=== PATIENT | female | born 1990 | race Caucasian/White ===

== ENCOUNTER → 2022-02-10 15:16 | Observation (INO) ==
[2022-02-10 14:04] LABS: Bacteria,Urine Moderate per hpf (None-Few); Bilirubin,Urine Negative (Negative); Blood,Urine Negative (Negative); Clarity,Urine Turbid (Clear); Color,Urine Light-Yellow (Yellow); Glucose,Urine (UA) Normal (Normal); Ketones,Urine Trace mg/dL (Negative); Leukocyte Esterase,Urine Large (Negative); Mucus,Urine Few per lpf (None-Few); Nitrite,Urine Negative (Negative); PH,Urine 6.5 pH Units (5.0-8.0); Protein,Urine Trace mg/dL (Neg-Trace); Specific Gravity,Urine 1.008 (1.010-1.025); Squamous Epithelial Cell,Urine Moderate per hpf (None-Few); Urobilinogen,Urine Normal (Normal); WBC,Urine 15-30 per hpf (0-3)
[~2022-02-10 15:16] MED LIST: Nitrofurantoin (BID) 100 MG CAPSULE PO ONE; Ringers Solution, Lactated 1,000 ML IVC ONE; Ringers Solution, Lactated 1,000 ML ONE
== END | disposition home or self-care (01) ==
LOC: 1NENULAB
PROVIDERS: ADMIT Student in an Organized Health Care Education/Training Program; ATTEND Student in an Organized Health Care Education/Training Program

== ENCOUNTER 2022-03-25 10:03 | Inpatient (IN) ==
[~2022-03-25 10:03] MED LIST changes: +*HR* Nalbuphine 10 MG/ML AMPUL IV PRN; +Famotidine 20 MG/2 ML VIAL IVP PRN; +Lidocaine 1% 20 ML MDV INFILT PRN; +Metoclopramide 10 MG/2 ML VIAL IVP PRN; +Naloxone 0.4 MG/ML INJ IVP PRN; -Nitrofurantoin (BID) 100 MG CAPSULE PO ONE; -Ringers Solution, Lactated 1,000 ML IVC ONE; -Ringers Solution, Lactated 1,000 ML ONE
[2022-03-25] MEDS ORDERED: Ringers Solution, Lactated 1,000 ML IVC SCH (10:15)
[2022-03-25 11:14] LABS: Amphetamine Screen,Urine Negative ng/mL (Cutoff=1000); Barbiturate Screen,Urine Negative ng/mL (Cutoff=200); Benzodiazepines Screen,Urine Negative ng/mL (Cutoff=200); Cannabinoid Screen,Urine Negative ng/mL (Cutoff = 50); Cocaine Screen,Urine Negative ng/mL (Cutoff= 300); Opiate Screen,Urine Negative ng/mL (Cutoff=300); Phencyclidine Screen,Urine Negative ng/mL (Cutoff=25)
[2022-03-25] MEDS ORDERED: miSOPROStoL 25 MCG TABLET PO PRN (11:43)
[2022-03-25] MEDS ORDERED: Oxytocin 30 UNIT/503 ML BAG IVC SCH (11:45)
[2022-03-25 11:57] LABS: Basophils % 0.1 %; Eosinophils % 0.3 %; Hematocrit 33.6 % (35.3-44.9); Hemoglobin 10.9 g/dL (11.5-15.4); Immature Granulocytes % 0.3 % (0-4); Lymphocytes # 1.4 K/mcL (0.6-4.6); Lymphocytes % 15.8 %; Mean Corpuscular HGB Conc 32.4 g/dL (31.6-35.5); Mean Corpuscular Hemoglobin 28.6 pg (28.0-33.3); Mean Corpuscular Volume 88.2 fL (83.0-100.0); Mean Platelet Volume 12.5 fL (9.4-12.4); Monocytes # 0.8 K/mcL (0.0-1.3); Monocytes % 8.4 %; Neutrophils # 6.7 K/mcL (1.6-8.9); Platelet Count 212 K/mcL (140-400); Red Blood Count 3.81 M/mcL (3.82-4.97); Red Cell Distribution Width 14.4 % (11.5-14.5); Segmented Neutrophils % 75.1 %; White Blood Count 8.9 K/mcL (4.3-11.1)
[2022-03-25] MEDS ORDERED: Fluconazole 150 MG TABLET PO SCH (12:15)
[2022-03-25 12:32] LABS: Influenza A PCR Negative (Negative); Influenza B PCR Negative (Negative); Resp. Syncytial Virus PCR Negative (Negative)
[2022-03-25 13:19] LABS: SARS-CoV-2 by PCR (In House) Negative (Negative)
[2022-03-25] MEDS ORDERED: EPHEDrine 50 MG/ML VIAL IVP PRN (13:50)
[2022-03-25] MEDS ORDERED: Ropivacaine/PF 0.2% 20 ML VIAL ONE (13:57)
[2022-03-25] MEDS ORDERED: *HR* FentaNYL (PF) 100 MCG/2 ML VIAL ONE (13:57)
[2022-03-25] MEDS: Epidural Premix (fent/bupiv) 110 ML EP SCH ×2 (16:06→21:08)
[2022-03-26] MEDS ORDERED: Measles/Mumps/Rubella Vacc 0.5 ML VIAL SQ PRN (00:49)
[2022-03-26] MEDS ORDERED: Ondansetron ODT 4 MG TAB.RAPDIS SL PRN (00:49)
[2022-03-26] MEDS ORDERED: OXYTOCIN/RINGERS LACTATE 10 UNIT/166.6 ML BAG IVC ONE (00:49)
[2022-03-26] MEDS ORDERED: Benzocaine/Menthol 56 GM AEROSOL SPRAY TP PRN (00:49)
[2022-03-26] MEDS ORDERED: Rho Immune Globulin 1,500 UNIT SYRINGE IM PRN (00:49)
[2022-03-26] MEDS: Acetaminophen 325 MG TABLET PO SCH ×2 (02:39→20:05)
[2022-03-26] MEDS: Ibuprofen 600 MG TABLET PO SCH ×2 (02:39→16:11)
[2022-03-26] MEDS: Lanolin 7 G OINT...G. TP PRN (04:15)
[2022-03-26 04:22] LABS: Basophils % 0.1 %; Eosinophils % 0.4 %; Hematocrit 30.8 % (35.3-44.9); Immature Granulocytes % 0.5 % (0-4); Lymphocytes # 1.4 K/mcL (0.6-4.6); Lymphocytes % 12.8 %; Mean Corpuscular HGB Conc 32.5 g/dL (31.6-35.5); Mean Corpuscular Hemoglobin 28.2 pg (28.0-33.3); Mean Corpuscular Volume 86.8 fL (83.0-100.0); Mean Platelet Volume 11.5 fL (9.4-12.4); Monocytes # 0.9 K/mcL (0.0-1.3); Monocytes % 8.2 %; Neutrophils # 8.6 K/mcL (1.6-8.9); Platelet Count 164 K/mcL (140-400); Red Blood Count 3.55 M/mcL (3.82-4.97); Red Cell Distribution Width 14.3 % (11.5-14.5); White Blood Count 11.1 K/mcL (4.3-11.1)
[2022-03-26] MEDS: Prenatal Vit/FA 1 EACH TABLET PO SCH (08:39)
[2022-03-26] MEDS ORDERED: NON-FORMULARY MEDICATION 1 EACH EACH (Pnv Prenatal Plus Multivit Tab 1 TAB) PO SCH (09:00)
[2022-03-27] MEDS: Ibuprofen 600 MG TABLET PO SCH (04:34)
[2022-03-27 07:11] VITALS: BP 104/55; PULSE 76; TEMP 98.4; O2SAT 97
[2022-03-27] MEDS: Lanolin 7 G OINT...G. TP PRN (09:11)
[2022-03-27] MEDS: Acetaminophen 325 MG TABLET PO SCH (09:12)
[2022-03-27] MEDS: Prenatal Vit/FA 1 EACH TABLET PO SCH (09:12)
[2022-03-28] MEDS ORDERED: NON-FORMULARY MEDICATION 1 EACH EACH (Ferrous Sulfate 1 TAB) PO SCH (09:00)
== END 2022-03-27 10:30 | disposition home or self-care (01) | DRG 560 ==
LOC: 1NENULAB → 1NENUOBS 03-26 00:41
PROVIDERS: ADMIT Advanced Practice Midwife; ATTEND Advanced Practice Midwife